=== PATIENT | female | born 1940 ===

== ENCOUNTER 2017-08-25 06:54 | Day surgery (SDC) | payer MEDICARE ==
[2017-08-17 08:57] VITALS: BMI 27.7
[2017-08-17 11:05] VITALS: RESP 18
[2017-08-25] MEDS ORDERED: Flurbiprofen 0.3% Opht SOLN OD SCH (07:30)
[2017-08-25] MEDS ORDERED: Phenylephrine 2.5% Opht Soln OD ONE (07:30)
[2017-08-25] MEDS ORDERED: Tropicamide 1% Opht 150 DROP/15 ML RIGHTEYE SCH (07:30)
[2017-08-25] MEDS ORDERED: Lactated Ringer's 1,000 ML IV ONE (07:39)
[2017-08-25] MEDS ORDERED: Tropicamide 1% Opht 150 DROP/15 ML OD ONE (07:53)
[2017-08-25] MEDS ORDERED: Acetylcholine 1% Opth System Pack IO ONE (08:11)
[2017-08-25] MEDS ORDERED: Tetracaine 0.5% Ophth 2 ML BOTTLE ONE (08:11)
[2017-08-25] MEDS ORDERED: Maxitrol Opht Susp ONE (08:11)
[2017-08-25] MEDS ORDERED: EPINEPHrine 1 mg/ml (1:1000) Inj ONE (08:12)
[2017-08-25] MEDS ORDERED: Lidocaine 1% 20 MG/2 ML PF AMP ONE (08:12)
[2017-08-25] MEDS ORDERED: BSS 15 ML 45 ML IR ONE (08:12)
[2017-08-25] MEDS ORDERED: CA CL/K CL/NA CL 500 ML IR ONE (08:12)
[2017-08-25] MEDS ORDERED: Pilocarpine 1% Opht Soln ONE (08:12)
[2017-08-25] MEDS ORDERED: Povidone Iodine 5% Opht SOLUTION ONE (08:13)
[2017-08-25] MEDS ORDERED: Midazolam 2 MG/2 ML VIAL ONE (09:33)
[2017-08-25] MEDS: Chondroitin/Hyaluronate Opth Syringe KIT (0.55 ml-0.5 ml) IO ONE ×2 (09:58→10:00)
[2017-08-25 12:56] VITALS: BP 120/59; PULSE 61; TEMP 97.7; O2SAT 95
--- NOTE | 2017-08-26 10:53 | OP ---
PROCEDURE DATE: 08/25/2017 SURGEON: LISA JONES MD ANESTHESIOLOGIST: SEBASTIAN CASTRO DO ANESTHESIA: LOCAL / IV SEDATION PREOPERATIVE DIAGNOSIS: CATARACT RIGHT EYE. POSTOPERATIVE DIAGNOSIS: CATARACT RIGHT EYE. OPERATION: CLEAR CORNEAL PHACOEMULSIFICATION WITH LENS IMPLANT RIGHT EYE. PREPARATION AND PROCEDURE: After the patient was prepped and draped in the usual manner for sterile ophthalmic surgery, local IV sedation was administered ; eye seals were applied to the upper and lower lid margins and an adult wire lid speculum was placed within the lids. Under microsurgical control, a two- step clear corneal incision was made into the anterior chamber. The initial incision was perpendicular to the corneal plane. The second incision with the keratome was placed at a 45-degree angle to the first incision. One cc of one percent Xylocaine MPF was instilled into the anterior chamber to achieve proper intraocular anesthesia. At this time, the Viscoelastic was injected into the anterior chamber for protection of the endothelium and for maintenance of the chamber depth. A 360-degree continuous curvilinear capsulorrhexis was performed using a pre-bent 25-gauge needle. Hydrodissection and hydrodelineation were performed using a Benavides cannula and balanced salt solution. Utilizing the tip of the Benavides cannula, the nucleus was rotated freely within the capsular bag. A standard one-handed phacoemulsification was utilized at this time for sculpting and rotating of the nucleus. The nucleus was fragmented in its entirety and aspirated without any consequence. A standard I&A was carried out for the residual cortical material. No residual material was noted within the capsular bag. The posterior capsule was noted to be clear. Additional Viscoelastic was injected into the capsular bag in preparation for lens implantation. After this has been satisfactorily achieved the intraocular lens injected through the corneal incision into the capsular bag. The intraocular lens was manipulated until it was properly oriented and the Viscoelastic was evacuated from the capsular bag and anterior chamber. The anterior chamber was reformed with balanced salt solution. The corneal incision was irrigated with BSS. The intraocular pressure was found to be within normal limits. This terminated the procedure. The speculum and lid drapes were removed. TobraDex ophthalmic suspension and Pilocarpine 1% drops one drop was applied to the eye. POSTOPERATIVE CONDITION: The patient was brought to the Postanesthesia Recovery area with stable vital signs. DLISA LEZAMA MD
== END 2017-08-25 15:00 | disposition home or self-care (01) ==
LOC: H.OPSURG 06:54
PROVIDERS: ATTEND Ophthalmology
DX: H25.041 Posterior subcapsular polar age-related cataract, right eye (principal); E11.9 Type 2 diabetes mellitus without complications; I10 Essential (primary) hypertension; E03.9 Hypothyroidism, unspecified
CPT/HCPCS: 66984; 82948; J0171; J2250; J2405; J3010; J7120; V2632

== ENCOUNTER 2017-09-08 07:03 | Day surgery (SDC) | payer MEDICARE ==
[2017-08-17 08:57] VITALS: BMI 27.7
[2017-09-08] MEDS ORDERED: Flurbiprofen 0.3% Opht SOLN OS SCH (07:30)
[2017-09-08] MEDS ORDERED: Tropicamide 1% Opht 150 DROP/15 ML OS SCH (07:30)
[2017-09-08] MEDS ORDERED: Phenylephrine 2.5% Opht Soln OS SCH (07:30)
[2017-09-08] MEDS ORDERED: Phenylephrine 2.5% Opht Soln OS ONE (08:05)
[2017-09-08] MEDS ORDERED: Tropicamide 1% Opht 150 DROP/15 ML LEFTEYE ONE (08:05)
[2017-09-08] MEDS ORDERED: Flurbiprofen 0.3% Opht SOLN OS ONE (08:05)
[2017-09-08 08:09] VITALS: RESP 18
[2017-09-08] MEDS ORDERED: EPINEPHrine 1 mg/ml (1:1000) Inj ONE (09:09)
[2017-09-08] MEDS ORDERED: CA CL/K CL/NA CL 500 ML IR ONE (09:09)
[2017-09-08] MEDS ORDERED: BSS 15 ML 45 ML IR ONE (09:10)
[2017-09-08] MEDS ORDERED: Povidone Iodine 5% Opht SOLUTION ONE (09:10)
[2017-09-08] MEDS: Tetracaine 0.5% Ophth 2 ML BOTTLE ONE ×2 (10:04→10:26)
[2017-09-08] MEDS: Lidocaine 1% 20 MG/2 ML PF AMP ONE ×2 (10:05→10:39)
[2017-09-08] MEDS: Chondroitin/Hyaluronate Opth Syringe KIT (0.55 ml-0.5 ml) IO ONE ×2 (10:07→10:40)
[2017-09-08] MEDS ORDERED: BSS 15 ML SOL IR ONE ×2 (10:07→10:40)
[2017-09-08] MEDS: Acetylcholine 1% Opth System Pack IO ONE ×2 (10:07→10:45)
[2017-09-08] MEDS: Pilocarpine 1% Opht Soln ONE ×2 (10:13→10:50)
[2017-09-08] MEDS: Maxitrol Opht Susp ONE ×2 (10:14→10:50)
[2017-09-08] MEDS ORDERED: Lactated Ringer's 1,000 ML IV ONE (10:15)
[2017-09-08] MEDS ORDERED: Midazolam 2 MG/2 ML VIAL ONE (10:31)
[2017-09-08 11:48] VITALS: O2SAT 97
[2017-09-08 12:15] VITALS: BP 142/70; PULSE 75; TEMP 98.2
== END 2017-09-08 12:40 | disposition home or self-care (01) ==
LOC: H.OPSURG 07:03
PROVIDERS: ATTEND Ophthalmology
DX: H26.9 Unspecified cataract (principal)
CPT/HCPCS: 66984; 82948; J0171; J2250; J3010; J7120

== ENCOUNTER 2018-02-08 13:32 | Emergency (ER) | payer MEDICARE ==
[2018-02-08 13:33] VITALS: BMI 27.7
[2018-02-08 13:38] VITALS: PULSE 78; RESP 18; TEMP 97; O2SAT 97
[2018-02-08 13:40] VITALS: BP 161/72
--- NOTE | 2018-02-08 14:50 | ED PDOC ---
Lower Extremity Pain/Injury Time Seen by Provider: 02/08/18 14:42 Chief Complaint (Nursing): Lower Extremity Problem/Injury Chief Complaint (Provider): Lower Extremity Problem/Injury History Per: Patient History/Exam Limitations: no limitations Onset/Duration Of Symptoms: Days (x3) Current Symptoms Are (Timing): Still Present Additional Complaint(s): 77 year old female with medical history of hypertension, arthritis and thyroid cancer, presents to the emergency department with a complaint of right-sided hip and knee pain after a ladder had fallen on her 3 days ago at a [employer]. She denied any pain at the time and was able to ambulate but noticed swelling and pain today. Patient stated she took Motrin earlier today with some relief. PMD: Clyde Fernando MD Past Medical History Reviewed: Historical Data, Nursing Documentation, Vital Signs Vital Signs: Last Vital Signs Temp 97 F L 02/08/18 13:36 Pulse 78 02/08/18 13:36 Resp 18 02/08/18 13:36 BP 161/72 H 02/08/18 13:36 Pulse Ox 97 02/08/18 13:36 - Medical History PMH: Arthritis, HTN, Hypercholesterolemia, Hypothyroidism, Malignancy (Thyroid Ca s/p surgical resection) Denies: Fractures, Chronic Kidney Disease - Surgical History Surgical History: Denies: No Surg Hx - Family History Family History: States: Unknown Family Hx - Social History Current smoker - smoking cessation education provided: No Ex-Smoker (has not smoked in the last 12 months): Yes Alcohol: None Drugs: Denies - Home Medications Home Medications: Ambulatory Orders Medication Instructions Recorded Amlodipine Besylate/Benazepril 1 cap PO DAILY 09/08/17 [Amlodipine-Benazepril 5-10 mg] Ergocalciferol (Vitamin D2) 1.25 mg PO DAILY 09/08/17 [Vitamin D2] Fenofibrate [Triglide] 160 mg PO DAILY 09/08/17 Levothyroxine [Synthroid] 125 mcg PO DAILY 09/08/17 metFORMIN [glucOPHAGE] 500 mg PO DAILY 09/08/17 - Allergies Allergies/Adverse Reactions: Allergies Allergy/AdvReac Type Severity Reaction Status Date / Time No Known Allergies Allergy Verified 02/08/18 13:36 Review of Systems ROS Statement: Except As Marked, All Systems Reviewed And Found Negative Genitourinary Female: Positive for: Pelvic Pain (right hip) Musculoskeletal: Positive for: Leg Pain (right knee with swelling) Physical Exam - Reviewed Nursing Documentation Reviewed: Yes Vital Signs Reviewed: Yes - Physical Exam Appears: Positive for: Non-toxic, No Acute Distress Head Exam: Positive for: ATRAUMATIC, NORMAL INSPECTION, NORMOCEPHALIC Pulses-Dorsalis Pedis (L): 2+ Pulses-Dorsalis Pedis (R): 2+ Pulses-Post. Tibialis (L): 2+ Pulses-Post. Tibialis (R): 2+ Extremity: Positive for: Normal ROM, Tenderness (anterior right knee mildly and gluteal region), Swelling (right posterior aspect of popliteal fossa). Negative for: Deformity (lower) Neurologic/Psych: Positive for: Alert (X3), Oriented. Negative for: Motor/ Sensory Deficits - ECG O2 Sat by Pulse Oximetry: 97 (RA) Pulse Ox Interpretation: Normal Medical Decision Making Medical Decision Making: Initial Impression: Hip pain and knee pain S/P injury Initial Plan: * Xray knee (right) * Xray hip with pelvis * US duplex LE Time: 1646 --Xray knee (right) FINDINGS: BONES: No evidence of acute displaced fracture nor dislocation. The osseous structures appear intact. JOINTS: Joint spaces relatively preserved. Tiny posterior patellar osteophyte formation. Knee note is made of a enthesophyte arising from the tibial tubercle JOINT EFFUSION: Suspect small suprapatellar joint effusion could OTHER FINDINGS: None. IMPRESSION: No acute displaced fracture nor dislocation. Minimal DJD. Suspect small suprapatellar joint effusion. Time: 1649 --Xray hip/pelvis FINDINGS: No evidence of acute displaced fracture nor dislocation. The osseous structures appear intact. Mild degenerative changes both hip joints. Mild sclerosis inferior margin both SI joints. IMPRESSION: No definitive evidence of acute displaced fracture nor dislocation. DJD both hip joints. If symptoms persist or occult fracture suspected clinically recommend followup CT scan or MRI. Time: 1706 --US duplex LE FINDINGS: COMMON FEMORAL VEIN: Unremarkable. SUPERFICIAL FEMORAL VEIN: Unremarkable. POPLITEAL VEIN: Unremarkable. POSTERIOR TIBIAL VEIN: Unremarkable. OTHER FINDINGS: None. IMPRESSION: No evidence of deep venous thrombosis in the right lower extremity. Scribe Attestation: Documented by Shira Borrego, acting as a scribe for Deirdre Pack PA-C. Provider Scribe Attestation: All medical record entries made by the Scribe were at my direction and personally dictated by me. I have reviewed the chart and agree that the record accurately reflects my personal performance of the history, physical exam, medical decision making, and the department course for this patient. I have also personally directed, reviewed, and agree with the discharge instructions and disposition. Disposition - Clinical Impression Clinical Impression: Knee injury, Contusion, hip - Patient ED Disposition Is Patient to be Admitted: No - Disposition Referrals: Ken Lopez III, MD [Staff Provider] - Disposition: Routine/Home Disposition Time: 17:50 Condition: FAIR Instructions: Contusion (DC), Knee Sprain (DC), Hip Pain in Older People, Hip Pain Forms: [employer] (Guinean) Print Language: KINYARWANDA
--- NOTE | 2018-02-08 16:47 | RAD ---
PROCEDURE: Right knee dated 02/08/2018 HISTORY: knee injury COMPARISON: Correlation made with prior radiographs left knee 06/12/2014 FINDINGS: BONES: No evidence of acute displaced fracture nor dislocation. The osseous structures appear intact. JOINTS: Joint spaces relatively preserved. Tiny posterior patellar osteophyte formation. Knee note is made of a enthesophyte arising from the tibial tubercle JOINT EFFUSION: Suspect small suprapatellar joint effusion could OTHER FINDINGS: None. IMPRESSION: No acute displaced fracture nor dislocation. Minimal DJD. Suspect small suprapatellar joint effusion.
--- NOTE | 2018-02-08 16:50 | RAD ---
PROCEDURE: Pelvis right hip 02/08/2018 HISTORY: Hip injury COMPARISON: Comparison made with CT scan abdomen pelvis dated the 03/07/2013 which image the pelvis and both hips in 3 planes. TECHNIQUE: Frontal view of the pelvis and frontal/frogleg lateral views right hip performed FINDINGS: No evidence of acute displaced fracture nor dislocation. The osseous structures appear intact. Mild degenerative changes both hip joints. Mild sclerosis inferior margin both SI joints. IMPRESSION: No definitive evidence of acute displaced fracture nor dislocation. DJD both hip joints. If symptoms persist or occult fracture suspected clinically recommend followup CT scan or MRI.
--- NOTE | 2018-02-08 17:08 | US ---
PROCEDURE: Right lower extremity venous duplex Doppler. HISTORY: evaluate for dvt COMPARISON: None available. TECHNIQUE: Common femoral, superficial femoral, popliteal and posterior tibial veins were evaluated. Flow was assessed with color Doppler, compressibility, assessment of phasic flow and augmentation response. FINDINGS: COMMON FEMORAL VEIN: Unremarkable. SUPERFICIAL FEMORAL VEIN: Unremarkable. POPLITEAL VEIN: Unremarkable. POSTERIOR TIBIAL VEIN: Unremarkable. OTHER FINDINGS: None. IMPRESSION: No evidence of deep venous thrombosis in the right lower extremity.
== END 2018-02-08 17:50 | disposition home or self-care (01) ==
LOC: H.ER 13:32
DX: S70.01XA Contusion of right hip, initial encounter (principal); S89.91XA Unspecified injury of right lower leg, initial encounter; W22.8XXA Striking against or struck by other objects, initial encounter; Y92.512 Supermarket, store or market as the place of occurrence of the external cause; E03.9 Hypothyroidism, unspecified; E78.00 Pure hypercholesterolemia, unspecified; I10 Essential (primary) hypertension; Z79.84 Long term (current) use of oral hypoglycemic drugs; Z85.850 Personal history of malignant neoplasm of thyroid

== ENCOUNTER 2019-03-19 21:16 | Emergency (ER) | payer MEDICARE, OTHER ==
[2019-03-19 21:25] VITALS: BMI 26.9
[2019-03-19] MEDS ORDERED: Albuterol-Ipratrop 3 mg / 0.5 (3 ml) UD INH STA ×2 (21:34→23:41)
--- NOTE | 2019-03-19 21:38 | ED PDOC ---
HPI: CCC, URI, Sore Throat Time Seen by Provider: 03/19/19 21:29 Chief Complaint (Nursing): Chest Pain Chief Complaint (Provider): Cough History Per: Patient History/Exam Limitations: no limitations Onset/Duration Of Symptoms: Days (x3) Current Symptoms Are (Timing): Still Present Associated Symptoms: Cough. denies: Fever, Nausea, Vomiting, Diarrhea Additional Complaint(s): 78 year old female presents to the ED with 3 days of worsening cough. Patient reports associated chest pain when coughing. She denies any fever, nausea, vomiting, diarrhea or allergies. PMD: none provided Past Medical History Reviewed: Historical Data, Nursing Documentation, Vital Signs - Medical History PMH: Arthritis, Asthma, HTN, Hypercholesterolemia, Hypothyroidism (S/P THYROID C ANCER), Malignancy (Thyroid Ca s/p surgical resection), Osteoporosis Denies: Fractures, Chronic Kidney Disease Comment Only: COPD (??) - Surgical History Surgical History: Endoscopy - Family History Family History: States: Unknown Family Hx - Home Medications Home Medications: Ambulatory Orders Medication Instructions Recorded Amlodipine Besylate/Benazepril 1 cap PO DAILY 09/08/17 [Amlodipine-Benazepril 5-10 mg] Ergocalciferol (Vitamin D2) 2,000 mg PO DAILY 09/08/17 [Vitamin D2] Fenofibrate [Triglide] 160 mg PO DAILY 09/08/17 metFORMIN [glucOPHAGE] 500 mg PO DAILY 09/08/17 Levothyroxine [Synthroid] 1 tab PO DAILY 05/05/18 Azithromycin [Z-Roni] 250 mg PO DAILY #6 tab 03/20/19 Cetirizine HCl [Zyrtec] 10 mg PO DAILY #30 capsule 03/20/19 predniSONE [predniSONE Tab] 40 mg PO DAILY #8 tab 03/20/19 - Allergies Allergies/Adverse Reactions: Allergies Allergy/AdvReac Type Severity Reaction Status Date / Time No Known Allergies Allergy Verified 03/19/19 21:28 Review of Systems ROS Statement: Except As Marked, All Systems Reviewed And Found Negative Constitutional: Negative for: Fever Cardiovascular: Positive for: Chest Pain (with cough) Respiratory: Positive for: Cough Gastrointestinal: Negative for: Nausea, Vomiting, Diarrhea Physical Exam - Reviewed Nursing Documentation Reviewed: Yes Vital Signs Reviewed: Yes - Physical Exam Appears: Positive for: Uncomfortable Skin: Positive for: Normal Color, Warm Eye Exam: Positive for: Normal appearance Cardiovascular/Chest: Positive for: Regular Rate, Rhythm Respiratory: Positive for: Wheezing (faint bilaterally) Extremity: Positive for: Normal ROM (upper and lower) Neurological/Psych: Positive for: Awake, Alert, Oriented (x3) - Laboratory Results Result Diagrams: 03/19/19 22:10 03/19/19 22:10 Medical Decision Making Medical Decision Making: Time: 2128 Workup for pneumonia vs bronchitis, Rue lout cardiac etiology Plan: --labs --CXR --Solu-medrol --Duonebs --reassess patient Labs show no abnormalities. CXR shows no signs of pneumonia or other abnormalities. Pt states she is feeling better after steroids and nebulizer treatments. Pt to be discharged home with prednisone and z-pack. Pt will follow up with PMD in one week and return parameters were discussed. ScribeAttestation: Documented byNicole Robert, acting as a scribe for Jaz Bangura MD. Provider ScribeAttestation: All medical record entries made by the Scribe were at my direction and personally dictated by me. I have reviewed the chart and agree that the record accurately reflects my personal performance of the history, physical exam, medical decision making, and the department course for this patient. I have also personally directed, reviewed, and agree with the discharge instructions and disposition. Disposition - Clinical Impression Clinical Impression: Chest congestion, Seasonal allergies, Upper respiratory infection - Disposition Disposition: Routine/Home Disposition Time: 00:40 Condition: IMPROVED Additional Instructions: Take medications as prescribed. Follow up with primary medical doctor for allergy workup. Return to the emergency department if symptoms worsen or if new symptoms develop. Prescriptions: Azithromycin [Z-Roni] 250 mg PO DAILY #6 tab Cetirizine HCl [Zyrtec] 10 mg PO DAILY #30 capsule predniSONE [predniSONE Tab] 40 mg PO DAILY #8 tab Instructions: Seasonal Allergies (DC) Forms: [email or web address] (Macedonian), [employer] (Northern Irish) Print Language: CAP[place]
[2019-03-19] MEDS ORDERED: Albuterol-Ipratrop 3 mg / 0.5 (3 ml) UD ONE ×2 (22:03→23:50)
[2019-03-19 22:21] LABS: BASO % 0.8 % (0.0-2.0); EOS # 0.1 K/uL (0.0-0.7); EOS % 2.5 % (0.0-4.0); HEMOGLOBIN 11.5 g/dL (12.0-16.0); LYMPH # 1.3 K/uL (1.0-4.3); LYMPH % 26.6 % (20.0-40.0); MEAN CELL VOLUME 85.2 fl (81.0-99.0); MEAN CORPUSCULAR HEMOGLOBIN 27.6 pg (27.0-31.0); MEAN CORPUSCULAR HGB CONC 32.4 g/dL (33.0-37.0); MEAN PLATELET VOLUME 8.8 fl (7.2-11.7); MONO # 0.4 K/uL (0.0-0.8); NEUT # 3.2 K/uL (1.8-7.0); NEUT % 63.1 % (50.0-75.0); NRBC % 0.1 % (0.0-0.0); RBC 4.16 Mil/uL (3.80-5.20); RED CELL DISTRIBUTION WIDTH 13.9 % (11.5-14.5)
[2019-03-19 22:27] LABS: VENOUS BLOOD GAS BASE EXCESS 3.6 mmol/L (0.0-2.0); VENOUS BLOOD GAS PCO2 59 mmHg (40-60); VENOUS BLOOD GAS PO2 30 mm/Hg (30-55); VENOUS BLOOD PH 7.33 (7.32-7.43)
[2019-03-19 22:31] LABS: ALBUMIN 4.1 g/dL (3.5-5.0); ALT/SGPT 19 U/L (9-52); AST/SGOT 26 U/L (14-36); BLOOD UREA NITROGEN 23 mg/dl (7-17); CALCIUM 8.9 mg/dL (8.4-10.2); GFR NON-AFRICAN AMERICAN > 60
[2019-03-19 22:37] LABS: INR 1.1; PROTHROMBIN TIME 12.1 Seconds (9.8-13.1)
[2019-03-19 22:39] LABS: PARTIAL THROMBOPLASTIN TIME 31.2 Seconds (25.6-37.1)
[2019-03-20 01:11] VITALS: BP 152/80; PULSE 83; RESP 17; TEMP 98.6; O2SAT 96
--- NOTE | 2019-03-20 14:36 | RAD ---
Date of service: 03/19/2019 HISTORY: possible admission COMPARISON: Comparison made with prior chest radiograph dated 08/17/2017. TECHNIQUE: 1 view obtained. FINDINGS: LUNGS: Low lung volumes with crowded bronchovascular markings and minor bibasilar atelectasis PLEURA: No significant pleural effusion identified, no pneumothorax apparent. CARDIOVASCULAR: Mild aortic atherosclerotic calcification present. Borderline/mild cardiomegaly. No pulmonary vascular congestion. OSSEOUS STRUCTURES: No significant abnormalities. VISUALIZED UPPER ABDOMEN: Normal. OTHER FINDINGS: None. IMPRESSION: Low lung volumes with crowded bronchovascular markings and minor bibasilar atelectasis
--- NOTE | 2019-03-20 15:28 | CARD ---
APPROVED REPORT Date of service: 03/19/2019 EKG Measurement Heart [id number] <Conclusion> Normal sinus rhythm with sinus arrhythmia Left atrial enlargement Incomplete right bundle branch block Non specific T-wave changes Prolonged QT Abnormal ECG
== END 2019-03-20 01:11 | disposition home or self-care (01) ==
LOC: H.ER 21:16
DX: R09.89 Other specified symptoms and signs involving the circulatory and respiratory systems (principal); J30.2 Other seasonal allergic rhinitis; J06.9 Acute upper respiratory infection, unspecified; E03.9 Hypothyroidism, unspecified; J44.9 Chronic obstructive pulmonary disease, unspecified; I10 Essential (primary) hypertension; Z79.84 Long term (current) use of oral hypoglycemic drugs; Z85.850 Personal history of malignant neoplasm of thyroid; Z98.890 Other specified postprocedural states; Z79.899 Other long term (current) drug therapy; M81.0 Age-related osteoporosis without current pathological fracture
CPT/HCPCS: 71045; 80053; 82803; 83735; 83880; 84100; 84484; 85025; 85610; 85730; 87040; 93005; 94150; 94640; 96374; 99285; J2930